=== PATIENT | male | born 1985 | race Asian ===

== ENCOUNTER 2017-05-02 14:22 | Day surgery (SDC) | payer BC ==
[2017-05-02] VITALS (9 sets, daily range): BP systolic 116–136; BP diastolic 66–102; PULSE 101–110; RESP 14–18; Ht 165.1 cm; Wt 71.3 kg
[~2017-05-02] VITALS: Ht 165.1 cm; Wt 71.3 kg
[~2017-05-02 14:22] MED LIST: CEFAZOLIN 1 GM INJ ONE
[2017-05-02] MEDS ORDERED: METF850T PO (14:49)
[2017-05-02] MEDS ORDERED: SITA100T8 PO (14:49)
[2017-05-02] MEDS ORDERED: LISI-313 PO (14:50)
[2017-05-02 15:39] LABS: ADD UMIC NO; UR ASCORBIC ACID NEGATIVE (NEGATIVE); UR BILIRUBIN (Dip) NEGATIVE (NEGATIVE); UR BLOOD (Dip) NEGATIVE (NEGATIVE); UR CLARITY CLEAR (CLEAR); UR COLOR YELLOW (YELLOW); UR GLUCOSE (Dip) NEGATIVE (NEGATIVE); UR KETONES (Dip) NEGATIVE (NEGATIVE); UR LEUKOCYTE ESTERASE (Dip) NEGATIVE Leu/ul (NEGATIVE); UR NITRITE (Dip) NEGATIVE (NEGATIVE); UR SPECIFIC GRAVITY (Dip) 1.016 (1.003-1.030); UR TOTAL PROTEIN (Dip) NEGATIVE (NEGATIVE); UR UROBILINOGEN (Dip) NEGATIVE (NEGATIVE)
[2017-05-02] MEDS ORDERED: LIDOCAINE 2% (SDV) 5 ML INJ ONE (16:00)
[2017-05-02] MEDS ORDERED: FENTAnyl 50 MCG/ML VIAL ONE (16:00)
[2017-05-02] MEDS ORDERED: PROPOFOL 20 ML ONE (16:00)
[2017-05-02] MEDS ORDERED: MIDAZOLAM 1 MG/ML 2 ML INJ ONE (16:00)
[2017-05-02 16:01] LABS: BASOPHILS % 0.3 % (0.0-2.0); EOSINOPHILS # 0.1 10^3/ul (0.0-0.5); EOSINOPHILS % 0.5 % (0.0-7.0); HEMATOCRIT 47.1 % (42.0-52.0); HEMOGLOBIN 15.5 g/dl (14.0-18.0); LYMPHOCYTES # 2.2 10^3/ul (0.8-2.9); LYMPHOCYTES % 17.6 % (15.0-51.0); MEAN CORPUSCULAR HGB CONC 32.9 g/dl (32.0-37.0); MEAN CORPUSCULAR VOLUME 88.2 fl (82.0-101.0); MEAN PLATELET VOLUME 10.3 fl (7.4-10.4); MONOCYTE # 0.5 10^3/ul (0.3-0.9); MONOCYTES % 4.1 % (0.0-11.0); NEUTROPHIL # 9.8 10^3/ul (1.6-7.5); PLATELET COUNT 315 10^3/UL (140-415); RED BLOOD COUNT 5.34 10^6/ul (4.70-6.10); RED CELL DISTRIBUTION WIDTH 11.6 % (11.5-14.5); WHITE BLOOD COUNT 12.7 10^3/ul (4.8-10.8)
--- NOTE | 2017-05-02 16:02 | HPN ---
Date/Time of Note Date/Time of Note DATE: 05/02/17 TIME: 16:02 Interval H&P Admission Note Pt. seen H&P reviewed: No system changes RICHIE TRACEY MD May 02, 2017 16:02
[2017-05-02 16:12] LABS: HOLD TRANSMISSIONS 1
[2017-05-02] MEDS ORDERED: PHENYLephrine (100 MCG/ML) 5ML SYG ONE ×2 (16:38→17:02)
[2017-05-02] MEDS ORDERED: ONDANSETRON 4 MG INJ ONE (16:39)
[2017-05-02] MEDS ORDERED: METOCLOPRAMIDE 10 MG INJ ONE (16:39)
[2017-05-02] MEDS ORDERED: HYDROmorphONE 2 MG/ML SYG ONE (17:06)
[2017-05-02] MEDS ORDERED: EPHEDrine SULFATE 50 MG/5 ML SYG ONE (17:17)
[2017-05-02] MEDS ORDERED: hydrALAzine 20 MG INJ IV PRN (17:30)
[2017-05-02] MEDS ORDERED: MEPERIDINE 25 MG INJ IV PRN (17:30)
[2017-05-02] MEDS ORDERED: OXYCODONE/ACETAMINOPHEN (5/325) TAB PO PRN (17:30)
[2017-05-02] MEDS ORDERED: FENTAnyl 50 MCG/ML VIAL IV PRN ×3 (17:30)
[2017-05-02] MEDS ORDERED: HYDROmorphONE (0.2 MG/ML) 10ML SYG IV PRN ×3 (17:30)
[2017-05-02] MEDS ORDERED: PROCHLORPERAZINE 10 MG INJ IV PRN (17:30)
[2017-05-02] MEDS ORDERED: LABETALOL HCL 20MG INJ IV PRN (17:30)
[2017-05-02] MEDS ORDERED: ONDANSETRON 4 MG INJ IV PRN (17:30)
[2017-05-02] MEDS ORDERED: DIPHENHYDRAMINE 50 MG INJ IV PRN (17:30)
--- NOTE | 2017-05-02 18:12 | SIPON ---
Date/Time of Note Date/Time of Note DATE: 05/02/17 TIME: 18:10 Operative Report Preoperative Diagnosis sth metacarpal fracture p/3 cmc joint petite montiel's Postoperative Diagnosis same Operation/Procedure Performed closed reduction percutaneous k wire fixation Surgeon kaur Sullivan assist staff Anesthesia: general Estimated blood loss: minimal Transfusion Required none Specimen none Grafts/Implants none Complications none RICHIE TRACEY MD May 02, 2017 18:12
--- NOTE | 2017-05-03 08:17 | OPR ---
DATE OF OPERATION: 05/02/2017 PREOPERATIVE DIAGNOSIS: Fracture subluxation (petite Bennetts fracture, right hand, 5th metacarpal). POSTOPERATIVE DIAGNOSIS: Fracture subluxation (petite Bennetts fracture, right hand, 5th metacarpal). OPERATION PERFORMED: Closed reduction percutaneous pin fixation. SURGEON: Richie García MD MODULAR [employer]W MEMBER: Staff. FURNITURE MAKER: Alma Quinones. ANESTHESIA TECHNIQUE: General anesthetic by the anesthesiologist. SURGICAL PAUSE: We interviewed the patient, marked the site. For secondary reinforcement of that we took preoperative x-rays prior to the surgery intraoperatively using the mini C-arm and confirmed the operative site on x-ray. INFORMED CONSENT: At the time we scheduled the operative procedure, we talked to the patient about risks and hazards of surgery, talked about operative mortality, wound infection, nerve injury, good result, bad result, potential complications. DISCUSSION: When there is a fracture of the thumb metacarpal, at the cmc joint it is called a Benitez's fracture and it is inherently unstable because of the fracture is between the opposing ligamentous attachment and the tendon which posed a dynamic forced distracting the fracture. The analog , the exact same thing, but to the little finger side I call a petite Bennetts because it is a mirror image and that is what this patient had, the mirror image of Benitez 's fracture, of fifth metacarpal at the carpometacarpal joint. The medial portion of the fracture is attached to the ring finger metacarpal. The other side has a tendon attached to it, flexi carpi ulnaris and extensor carpi ulnaris and they both tend to distract the fracture, making an inherent unstable injury. DESCRIPTION OF PROCEDURE: The patient was taken to surgery. The fracture identified on fluoroscopy. The lab support tech pulled the little finger on maximal stretch. With my thumb I compressed the fifth metacarpal up to the side of the ring finger metacarpal which reduced the fracture and percutaneous added 3 K- wires. We took x-rays documenting that the finger without traction was stable out to length and the fracture reasonably reduced. As long as you gain length and keep the fifth metacarpal well away from the hamate, these do well. The operative procedure was only a few minutes. There was no actual incision. I did release the skin on the edges of the pins which are percutaneous. We applied a fiberglass splint with none of the fiberglass pushed against the K- wires. We will remove these K-wires in about 3 or 4 weeks. DISCHARGE MEDICATIONS: 1. Hydrocodone 2. Acetaminophen. 3. Keflex. FOLLOWUP: Will be in our office in a week. We will change the dressing and splint. We will leave him splinted about 3 weeks and the wires will be removed in the third to fourth week. Dictated By: RICHIE BARRON/MAREN Conf#: [id number] DID#: [id number] MTDD
--- NOTE | 2017-05-03 16:18 | RADRPT ---
PROCEDURE: Intraoperative imaging of the right wrist with fluoroscopy. CLINICAL INDICATION: Right wrist pain. Intraoperative. TECHNIQUE: 9 images of the right wrist were obtained in the operating room with an image intensifi er. No radiologist was in attendance. Fluoroscopy time is 15 seconds. COMPARISON: No prior study is available for comparison. FINDINGS: Images demonstrate surgical instruments overlying the right wrist. There is open reduction and inter nal fixation of the base of the fifth metacarpal. IMPRESSION: 1. Intraoperative imaging of the right wrist. RPTAT: QQ .Félix Mckenzie MD, MD Date Time Electronically viewed and signed by .Félix Mckenzie MD, on 05/03/2017 16:18 .R/
== END 2017-05-02 18:45 | disposition home or self-care (01) ==
LOC: SDS 14:22
PROVIDERS: ATTEND Orthopaedic Surgery Hand Surgery
DX: S62.211A Bennett's fracture, right hand, initial encounter for closed fracture (principal); I10 Essential (primary) hypertension; E11.9 Type 2 diabetes mellitus without complications; X58.XXXA Exposure to other specified factors, initial encounter; Y92.89 Other specified places as the place of occurrence of the external cause; Y93.89 Activity, other specified
CPT/HCPCS: 26650; 81003; 82962; 85025; C1713; J0690; J1170; J2250; J2370; J2405; J2765; J3010; Z7512; Z7610